=== PATIENT | male | born 1965 | race Hispanic/Latino ===

== ENCOUNTER 2024-01-12 09:50 | Emergency (ER) | payer BC ==
[~2024-01-12] VITALS: Ht 167.6 cm; Wt 93.9 kg
[2024-01-12 10:22] LABS: BASOPHILS % 0.2 % (0.0-1.0); HEMATOCRIT 45.7 % (38.2-49.6); HEMOGLOBIN 15.9 g/dL (14.0-18.0); LYMPHOCYTES % 16.3 % (18.0-39.1); MEAN CORPUSCULAR HEMOGLOBIN 27.7 pg (28-32); MEAN CORPUSCULAR HGB CONC 34.8 g/dL (31-35); MEAN CORPUSCULAR VOLUME 79.6 fL (81-99); MONOCYTES # (AUTO) 0.8 (0.2-0.8); MONOCYTES % 6.4 % (4.4-11.3); NEUTROPHILS # (AUTO) 9.4 (2.1-6.9); NEUTROPHILS % 76.7 % (38.7-80.0); PLATELET COUNT 227 x10e3/uL (140-360); RED BLOOD COUNT 5.74 x10e6/uL (4.3-5.7); WHITE BLOOD COUNT 12.21 x10e3/uL (4.8-10.8)
[2024-01-12] MEDS ORDERED: SODIUM CHLORIDE 0.9% 1000ML 1,000 ML ONE (10:24)
[2024-01-12] MEDS ORDERED: MAGNESIUM SULFATE 2GM/50ML 50 ML IV ONE (10:24)
[2024-01-12] MEDS ORDERED: ONDANSETRON HCL INJ 2MG/ML 2ML 2 MG/ML VIAL ONE ×2 (10:24→12:27)
[2024-01-12] MEDS ORDERED: Morphine 4mg INJECTION 4 MG/ML INJ ONE ×2 (10:26→12:27)
[2024-01-12] MEDS: MAGNESIUM SULFATE 2GM/50ML 50 ML IV ONE (10:27)
[2024-01-12] MEDS: SODIUM CHLORIDE 0.9% 1000ML 1,000 ML IV ONE (10:27)
[2024-01-12] MEDS: ONDANSETRON HCL INJ 2MG/ML 2ML 2 MG/ML VIAL IV STA (10:31)
[2024-01-12] MEDS: Morphine 4mg INJECTION 4 MG/ML INJ IV ONE (10:31)
[2024-01-12 10:54] LABS: ALBUMIN 3.8 g/dL (3.5-5.0); ALBUMIN/GLOBULIN RATIO 1.2 (0.8-2.0); ANION GAP 16.1 mmol/L (8-16); BILIRUBIN,TOTAL 0.9 mg/dL (0.2-1.2); CALCIUM 8.6 mg/dL (8.4-10.2); CREATININE, SERUM 1.05 mg/dL (0.72-1.25); TOTAL PROTEIN 7.1 g/dL (6.5-8.1)
[2024-01-12 10:59] LABS: POTASSIUM 3.1 mmol/L (3.5-5.1)
[2024-01-12] MEDS ORDERED: IOPAMIDOL 370 MG/ML 100 ML INFUS..BTL INJ ONE (11:08)
[2024-01-12 12:17] LABS: BILIRUBIN,URINE NEGATIVE (NEGATIVE); CLARITY,URINE CLEAR (CLEAR); COLOR,URINE YELLOW (YELLOW); GLUCOSE, URINE NEGATIVE (NEGATIVE); KETONES,URINE NEGATIVE (NEGATIVE); LEUKOCYTE ESTERASE ,URINE NEGATIVE (NEGATIVE); NITRITE,URINE NEGATIVE (NEGATIVE); PH,URINE 6 (5 - 7); PROTEIN,URINE DIPSTICK TRACE (NEGATIVE); URINE UROBILINOGEN 0.2 mg/dL (0.2 - 1)
[2024-01-12] MEDS ORDERED: MAGNESIUM SULFATE 2GM/50ML IV ONE (12:27)
[2024-01-12] MEDS ORDERED: SODIUM CHLORIDE 0.9% 1000 ML BAG ONE (12:27)
[2024-01-12 12:32] LABS: BACTERIA,URINE FEW /HPF; EPITHELIAL CELLS,URINE RARE /LPF
[2024-01-12] MEDS ORDERED: PANTOPRAZOLE SO40 MG PO (13:23)
[2024-01-12] MEDS ORDERED: ONDANSETRON ODT4 MG PO (13:23)
[2024-01-12 14:09] VITALS: BP 144/70; PULSE 68; RESP 14; O2SAT 100
== END 2024-01-12 14:13 | disposition home or self-care (01) ==
LOC: ER 10:01
DX: R19.7 Diarrhea, unspecified (principal); K29.80 Duodenitis without bleeding; I10 Essential (primary) hypertension
CPT/HCPCS: 36415; 74177; 80053; 81001; 83690; 85025; 93005; 99284; J2270; J2405; J3475; J7030; Q9967